=== PATIENT | female | born 1945 | race Caucasian/White ===

== ENCOUNTER 2018-05-28 11:19 | Emergency (ER) | payer OTHER, MEDICAID ==
[~2018-05-28] VITALS: Ht 160 cm; Wt 76.7 kg
[~2018-05-28 11:19] MED LIST: LOT10 PO; SYN1 PO; ULT50 PO
[2018-05-28 11:23] VITALS: Ht 160 cm; Wt 76.7 kg
[2018-05-28 12:07] VITALS: BP 158/94
== END 2018-05-28 13:28 | disposition home or self-care (01) ==
LOC: ED 11:19
DX: S50.02XD Contusion of left elbow, subsequent encounter (principal); X58.XXXD Exposure to other specified factors, subsequent encounter; I10 Essential (primary) hypertension; E03.9 Hypothyroidism, unspecified